=== PATIENT | female | born 1980 | race Caucasian/White ===

== ENCOUNTER → 2021-12-07 | Outpatient (CLI) | payer OTHER | LOC: RAD 07:17 | DX: Z02.1 Encounter for pre-employment examination (principal) | CPT/HCPCS: 71046 ==

== ENCOUNTER → 2022-03-02 | Outpatient (CLI) | payer BC | LOC: KOH-I 10:29 | DX: R74.8 Abnormal levels of other serum enzymes (principal); K82.4 Cholesterolosis of gallbladder | CPT/HCPCS: 76705 ==